=== PATIENT | male | born 1995 | race Caucasian/White ===

== ENCOUNTER 2019-05-16 10:30 | Outpatient (RCR) | payer OTHER, SELFPAY ==
--- NOTE | 2019-05-05 13:54 | OT.OP.EVAL ---
Visit Care Team Role Provider Type Molina Sanchez PA-C Attending Provider Advanced Blood Tester Primary Care Provider Specialty: Family Practice Address: [address] [place] [address], [id number] Email: Occupational Therapy Initial Evaluation OT Outpatient Adult Evaluation Start: 05/05/19 13:17 Freq: Status: Active Protocol: Document 05/05/19 13:17 AMS (Rec: 05/05/19 13:53 AMS [email or web address]) General Information Visit Start Time 09:30 Visit Stop Time 10:10 Total Visit Minutes 40 Visit Number [id number] Plan of Care Dates 05/05/19-06/30/19 Insurance Information - 12 visits authorized (04/24/19-08/22/19) Treatment Setting Outpatient Care Note Type Initial Evaluation Referring Physician Molina Sanchez PA-C Reason for Referral Right hand pain Precautions None listed Identification Confirmed Yes: Photo ID Patient Concerns Right index finger pain Patient Goals PLOF Medical History Physical, Occupational & Speech Therapy Health History form completed by patient and placed in paper chart. Significant for depression. 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 Excluding right second digit w/ grasp patterns . Goals Objective Measurements Intermittent pain presentation . (-) report of passive range of motion/stretches involving the right second digit since time of injury. (+) tightness of right second digit; tendency into slight flexion at PIPJ w/ active extension of wrist and digits. (+) tightness of wrist/digit flexors. Avg 78.7# of force w/ left regulator mechanic and avg 61.3# of force w/ right regulator mechanic w/ dynamometer II strength testing. Denied reproduction of symptoms w/ resisted digit abd/add proximally or distally . Tendency towards exclusion of right second digit w/ object manipulation/functional grasp patterns. Treatment Initiated home exercise program. Please see below for specific details. Short Term Goals 1. Patient will present with increased functional abilities of the dominant hand with active inclusion of the right second digit due to reduction of pain/discomfort; this will be evidenced by report of 1 or less out of 10 on the Pain Assessment Grid. Nursing Home Goals 1. Patient will be modified independent with home exercise program utilizing provided written and visual instructions from therapist. 2. Patient will present with increased functional abilities of the dominant hand, as evidenced by verbal report of ability to actively incorporate the right second digit with strength training exercise program without complaints of pain and/or discomfort. Assessment/Plan Patient Response Good Rehabilitation Potential Good Impairments Identified Coordination/Dexterity Functional Activities Motor Function Pain Weakness Meaningful Activities Stiffness Motor Planning Treatment Assessment Patient is a 23 year-old right hand dominant male referred to outpatient OT by PCP, Molina Sanchez PA-C, secondary to right hand pain, specifically pain of the right index finger. Patient reported that pain of the right index finger, as well as right shoulder pain, presented in December of 2018 after attempting to do bicep curls w/ 30# DB. Patient denied receiving treatment since time of injury d/t deployment 3 weeks post injury . Patient reports pain of the right shoulder has since resolved. 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 PLOF: Prefers increased number of reps with resistance /strength training. Patient goals/concerns: Concerns re: intermittent pain presentation . Evaluation findings: Intermittent pain presentation of right index finger primarily of the dorsal right MCP joint; discomfort initially reported w/ tendon gliding (tight fist and hook fist), however, resolved after several cycles; discomfort intermittently reported w/ passive extension of right second digit; weakness of the right second digit; decreased right regulator mechanic strength; and exclusion of right second digit w/ functional grasp patterns. Outpatient OT is recommended to address these areas in order to maximize patient's success in day-to-day life w/ active utilization of the dominant, right hand, with inclusion of the right second digit. Home Exercise Program Initiated home exercise program; instructed in tendon gliding exercises, passive wrist/digit PROM stretches. Provided written and visual instructions for these two exercises. Instructed in resisted abd/add/flex/ext exercises w/ use of rubberband ; provided medium firm green theraputty to transition to as able/as tolerated. Also instructed in stabilization exercises for right second digit and active incorporation of digit w/ spherical grasp ( strong grasp) w/ use of 4# DB (side). Patient denied need for written and/or visual instructions for strengthening exercises. Comment 8 weeks Treatment Frequency Once a Week Therapeutic Contents Active Range of Motion Client Education Cognitive Skills Development Functional Activities Home Exercise Program Joint Protection Manual Therapy Education Neurodevelopment Treatment Neuromuscular Re-Education Stretching/Flexibility Activities Therapeutic Activities Therapeutic Exercises Modalities Modalities As Needed As Prescribed Types of Modalities Contrast Bath E-Stim Functional Stimulation (FES) Ice Massage T.E.N. Stimulation TENS Placement/Application Ultrasound Patient Instruction Home Exercise Program Plan of Care Questions/Concerns
--- NOTE | 2019-05-16 11:05 | OT.OP.DC ---
Visit Care Team Role Provider Type Molina Sanchez PA-C Attending Provider Advanced Banquet Manager Primary Care Provider Address: [address] [place] [address], [id number] Email: OT Outpatient OT Outpatient Adult Evaluation Start: 05/05/19 13:17 Freq: Status: Active Protocol: Document 05/05/19 13:17 AMS (Rec: 05/05/19 13:53 AMS [email or web address]) General Information Session Time Visit Start Time 09:30 Visit Stop Time 10:10 Total Visit Minutes 40 Visit Information Visit Number [id number] Plan of Care Dates 05/05/19-06/30/19 Insurance Information - 12 visits authorized (04/24/19-08/22/19) Setting Treatment Setting Outpatient Care Visit Type Note Type Initial Evaluation Referral Referring Physician Molina Sanchez PA-C Reason for Referral Right hand pain Precautions None listed Identification Identification Confirmed Yes: Photo ID Patient Patient Concerns Right index finger pain Patient Goals PLOF Medical Information Medical History Physical, Occupational & Speech Therapy Health History form completed by patient and placed in paper chart. Significant for depression. 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 Excluding right second digit w/ grasp patterns . Goals Objective Measurements Objective Measurements Intermittent pain presentation . (-) report of passive range of motion/stretches involving the right second digit since time of injury. (+) tightness of right second digit; tendency into slight flexion at PIPJ w/ active extension of wrist and digits. (+) tightness of wrist/digit flexors. Avg 78.7# of force w/ left match marker and avg 61.3# of force w/ right match marker w/ dynamometer II strength testing. Denied reproduction of symptoms w/ resisted digit abd/add proximally or distally . Tendency towards exclusion of right second digit w/ object manipulation/functional grasp patterns. Treatment Treatment Initiated home exercise program. Please see below for specific details. Short Term Goals Short Term Goals 1. Patient will present with increased functional abilities of the dominant hand with active inclusion of the right second digit due to reduction of pain/discomfort; this will be evidenced by report of 1 or less out of 10 on the Pain Assessment Grid. Lead Game Designer Goals Long-Term Goals 1. Patient will be modified independent with home exercise program utilizing provided written and visual instructions from therapist. 2. Patient will present with increased functional abilities of the dominant hand, as evidenced by verbal report of ability to actively incorporate the right second digit with strength training exercise program without complaints of pain and/or discomfort. Assessment/Plan Assessment Patient Response Good Rehabilitation Potential Good Impairments Identified Coordination/Dexterity Functional Activities Motor Function Pain Weakness Meaningful Activities Stiffness Motor Planning Treatment Assessment Patient is a 23 year-old right hand dominant male referred to outpatient OT by PCP, Molina Sanchez PA-C, secondary to right hand pain, specifically pain of the right index finger. Patient reported that pain of the right index finger, as well as right shoulder pain, presented in December of 2018 after attempting to do bicep curls w/ 30# DB. Patient denied receiving treatment since time of injury d/t deployment 3 weeks post injury . Patient reports pain of the right shoulder has since resolved. 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 PLOF: Prefers increased number of reps with resistance /strength training. Patient goals/concerns: Concerns re: intermittent pain presentation . Evaluation findings: Intermittent pain presentation of right index finger primarily of the dorsal right MCP joint; discomfort initially reported w/ tendon gliding (tight fist and hook fist), however, resolved after several cycles; discomfort intermittently reported w/ passive extension of right second digit; weakness of the right second digit; decreased right match marker strength; and exclusion of right second digit w/ functional grasp patterns. Outpatient OT is recommended to address these areas in order to maximize patient's success in day-to-day life w/ active utilization of the dominant, right hand, with inclusion of the right second digit. Home Exercise Program Initiated home exercise program; instructed in tendon gliding exercises, passive wrist/digit PROM stretches. Provided written and visual instructions for these two exercises. Instructed in resisted abd/add/flex/ext exercises w/ use of rubberband ; provided medium firm green theraputty to transition to as able/as tolerated. Also instructed in stabilization exercises for right second digit and active incorporation of digit w/ spherical grasp ( strong grasp) w/ use of 4# DB (side). Patient denied need for written and/or visual instructions for strengthening exercises. Plan Comment 8 weeks Treatment Frequency Once a Week Therapeutic Contents Active Range of Motion Client Education Cognitive Skills Development Functional Activities Home Exercise Program Joint Protection Manual Therapy Education Neurodevelopment Treatment Neuromuscular Re-Education Stretching/Flexibility Activities Therapeutic Activities Therapeutic Exercises Modalities Modalities As Needed As Prescribed Types of Modalities Contrast Bath E-Stim Functional Stimulation (FES) Ice Massage T.E.N. Stimulation TENS Placement/Application Ultrasound Patient Instruction Home Exercise Program Plan of Care Questions/Concerns Sensory Assessment Sensory Profile2 Functional Wrist/Hand Scan Hand Side OT Outpatient Treatment Note - Adult Start: 05/05/19 13:17 Freq: Status: Active Protocol: Document 05/16/19 11:04 AMS (Rec: 05/16/19 11:05 AMS [email or web address]) OT Outpatient Adult Treatment Note Visit Information Plan of Care Dates 05/05/19-06/30/19 Setting Treatment Setting Outpatient Care Visit Type Note Type Discharge Summary General Information General Information Patient is a 23 year-old right hand dominant male referred to outpatient OT by PCP, Molina Sanchez PA-C, secondary to right hand pain, specifically pain of the right index finger. Patient reported that pain of the right index finger, as well as right shoulder pain, presented in December of 2018 after attempting to do bicep curls w/ 30# DB. Patient denied receiving treatment since time of injury d/t deployment 3 weeks post injury . Patient reports pain of the right shoulder has since resolved. 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 - Subjective Identification Type Name Identification Reconciled With Medical Record Observations Eugenio denied any presentation of pain/discomfort since time of initial evaluation. Eugenio is compliant with home exercise program. Eugenio reported that he is 'actively using this finger again with everything'. Patient/Caregiver Compliance with Home Good Exercise Program - Objective Short Term Goals ALL GOALS MET 05/16/19 Patient will present with increased functional abilities of the dominant hand with active inclusion of the right second digit due to reduction of pain/discomfort; this will be evidenced by report of 1 or less out of 10 on the Pain Assessment Grid. 05/15/19= Verbally denied pain Lead Game Designer Goals ALL GOALS MET 05/16/19 Patient will be modified independent with home exercise program utilizing provided written and visual instructions from therapist. Patient will present with increased functional abilities of the dominant hand, as evidenced by verbal report of ability to actively incorporate the right second digit with strength training exercise program without complaints of pain and/or discomfort. - Exercises 1 Descriptor HEP. Provided firm blue theraputty and extra firm wall theraputty for upgrading of finger strengthening exercises . Reviewed previously recommended exercises. Eugenio denied any questions. Complexity Upgraded - Assessment Patient Response to Treatment Good Rehab Potential Good Assessment of Overall Progress Improving Assessment of Improvement Eugenio has met all OT goals at this time; he is actively incorporating the digit spontaneously with object manipulation. Eugenio denies any pain presentation. He is independent with home exercise program; therapist provided patient with firm and extra firm theraputty for progression of home exercise program. Recommend discharge to [facility] at this time; patient in agreement. Home Exercise Program Please refer to treatment section of note for specific details. Reviewed with Patient/Caregiver Goals Home Exercise Program Patient/Caregiver Understanding Good - Plan Therapy Recommendations Discharge from Occupational Therapy
== END 2019-05-30 15:03 | disposition home or self-care (01) ==
LOC: OT 10:30
PROVIDERS: PCP Physician Assistant; Visit Provider Physician Assistant
DX: M79.641 Pain in right hand (principal)
CPT/HCPCS: 97110; 97165

== ENCOUNTER → 2021-02-18 18:20 | Outpatient (CLI) | payer OTHER, SELFPAY ==
--- NOTE | 2021-02-18 18:23 | DI.MRI.S_ITS ---
PROCEDURE: MR SHOULDER RT WO CON INDICATIONS: PAIN RIGHT SHOULDER TECHNIQUE: Noncontrast oblique coronal T2 fast spin echo with fat saturation, oblique sagittal T1 spin echo and T2 fast spin echo with fat saturation, axial T1 spin echo and T2 fast spin echo with fat saturation through the shoulder. COMPARISON: None. FINDINGS: Image quality: Excellent. Rotator cuff: Low-grade bursal surface tearing of the posterior supraspinatus tendon at the humeral insertion site extending to the musculotendinous junction. The supraspinatus, infraspinatus, and subscapularis tendons otherwise appear intact throughout. Sagittal images demonstrate no muscle atrophy. Bones and bursae: No bone marrow contusions or fractures. Moderate acromioclavicular joint degeneration. The acromion demonstrates conventional anatomy, without an os acromiale. No pathologic subacromial-subdeltoid or subcoracoid bursal fluid is present. Capsule and soft tissues: Labrum is grossly unremarkable The long head of the biceps tendon demonstrates normal location and morphology. The rotator interval appears normal, without fibrosis. The coracohumeral ligament is normal in thickness. IMPRESSION: 1. Low-grade bursal surface tearing of the supraspinatus tendon. No full-thickness rotator cuff tear. 2. Acromioclavicular joint osteoarthritis. Dictated by: Bonnie Serrano M.D. on 02/21/2021 at 9:16 Approved by: Bonnie Serrano M.D. on 02/21/2021 at 9:17
== END ==
PROVIDERS: Referring Provider Nurse Practitioner Family; Visit Provider Nurse Practitioner Family
DX: M25.511 Pain in right shoulder (principal); M19.011 Primary osteoarthritis, right shoulder; M75.111 Incomplete rotator cuff tear or rupture of right shoulder, not specified as traumatic
CPT/HCPCS: 73221